=== PATIENT | female | born 1990 | race Caucasian/White ===

== ENCOUNTER 2021-04-16 06:00 | Inpatient (IN) | payer SELFPAY ==
[2021-04-16] MEDS ORDERED: LIDOCAINE 0.5% (PF) 5 MG/ML (50 ML SDV) SQ PRN (06:19)
[2021-04-16] MEDS ORDERED: METHYLERGONOVINE 0.2 MG/ML 1 ML AMP IM PRN (06:19)
[2021-04-16] MEDS ORDERED: OXYTOCIN 10 UNIT/ML 1 ML VIAL IM PRN (06:19)
[2021-04-16] MEDS ORDERED: CARBOPROST TROMETHAMINE 250 MCG/ML 1 ML AMP IM PRN (06:19)
[2021-04-16] MEDS ORDERED: TERBUTALINE 1 MG/ML VIAL SQ PRN (06:19)
[2021-04-16 06:32] LABS: Basophils % (A) 0 %; Eosinophils # (A) 0.1 k/uL (0-0.7); Eosinophils % (A) 1 %; HCT 30.7 % (34.0-46.0); Hypochromasia Slight; Lymphocytes # (A) 1.5 k/uL (1.0-4.8); Lymphocytes % (A) 14 %; MCH 28.7 pg (25.0-35.0); MCHC 32.7 g/dL (31.0-37.0); MCV 87.5 fL (80.0-100.0); Mean Platelet Volume 8.7; Monocytes # (A) 0.6 k/uL (0-1.0); Monocytes % (A) 5 %; Neutrophils % (A) 77 %; Platelet Count 223 k/uL (150-450); Poikilocytosis Slight; RDW 15.3 % (11.5-15.5); WBC 10.5 k/uL (3.8-10.6)
[2021-04-16] MEDS: OXYTOCIN 30 UNITS/500 ML NS 30 UNIT in SALINE 1 500ML.BAG IV SCH ×2 (06:36→15:30)
[2021-04-16] MEDS: LACTATED RINGERS 1,000 ML IV SCH ×3 (06:36→10:40)
[2021-04-16] MEDS ORDERED: BUTORPHANOL 1 MG/ML 1 ML VIAL IV PRN (08:21)
--- NOTE | 2021-04-16 08:21 | P.HPOB ---
History of Present Illness H&P Date: 04/16/21 Chief Complaint: Here for elective induction of labor with favorable multiparous cervix This is a 30-year-old white female 3 para 2001 EDC 04/23/2021 at 39 weeks gestation who presents today for induction of labor. She is having mild irregular spontaneous contractions. She denies fluid leakage or vaginal bleeding. Fetus is been active throughout the . Past medical history significant for ADHD. Past surgical history oral surgery, uncomplicated. Current medications vitamins daily, baby aspirin daily. ALLERGIES none known. Family history significant for Down syndrome, cerebral palsy, ovarian cancer, unspecified clotting disorder. Obstetric history significant for normal spontaneous vaginal deliveries 2, unremarkable. Social history patient is a former tobacco smoker, she is currently single. She denies alcohol or drug use. Obstetric history is significant for blood type A+, rubella status immune. VDRL testing, urine culture, hepatitis B surface antigen, HIV testing, gonorrhea and chlamydia cultures, group B strep cultures all negative. On exam patient is 4 foot 11 inches, 160 pounds, blood pressure 119/67, vital signs are stable and she is afebrile. The general physical exam is within normal limits. heart rate is consistent with reactive NST. Extremities are negative for edema. Chest is clear. Cervix is 4 cm dilated, 70% effaced, - 2 station, vertex presentation, anterior, soft. Artificial amniorrhexis reveals clear fluid. Impression: 39 week intrauterine , here for elective induction of labor, all signs reassuring. Plan: Oxytocin per hospital protocol. Analgesic options reviewed with the patient. Close maternal and surveillance. Anticipate normal spontaneous vaginal delivery. Review of Systems Constitutional: Reports as per HPI Past Medical History Past Medical History: No Reported History History of Any Multi-Drug Resistant Organisms: None Reported Past Surgical History: No Surgical Hx Reported Past Anesthesia/Blood Transfusion Reactions: No Reported Reaction Past Psychological History: No Psychological Hx Reported Smoking Status: Never smoker Past Alcohol Use History: None Reported Past Drug Use History: None Reported - Past Family History Father Family Medical History: No Reported History Medications and Allergies Home Medications Medication Instructions Recorded Confirmed Type Pedi Multivit No.25/Folic Acid 1 tab PO DAILY 04/16/21 04/16/21 History [Flintstones Multivit Chew Tab] Allergies Allergy/AdvReac Type Severity Reaction Status Date / Time No Known Allergies Allergy Verified 05/07/15 20:14 Exam Vital Signs Temp Pulse Resp BP Pulse Ox 04/16/21 06:17 98.4 F 106 H 16 119/67 99 Intake and Output 04/15/21 04/16/21 04/16/21 22:59 06:59 14:59 Other: Weight 72.575 kg See dictation under HPI please Results Result Diagrams: 04/16/21 06:15 Abnormal Lab Results - Last 24 Hours (Table) 04/16/21 Range/Units 06:15 RBC 3.50 L (3.80-5.40) m/uL Hgb 10.0 L (11.4-16.0) gm/dL Hct 30.7 L (34.0-46.0) % Neutrophils # 8.0 H (1.3-7.7) k/uL Assessment and Plan Assessment: 39 week intrauterine , here for induction of labor, all signs reassuring Plan: Oxytocin per hospital protocol. Close maternal and surveillance. Analgesic options reviewed with the patient. Anticipate normal spontaneous vaginal delivery. Time with Patient: Less than 30
[2021-04-16] MEDS ORDERED: ROPIVACAINE 5MG/ML 20ML VIAL ONE (09:53)
[2021-04-16] MEDS ORDERED: fentaNYL (PF) 50 MCG/ML 5 ML AMP ONE (09:53)
[2021-04-16] MEDS ORDERED: SODIUM CHLORIDE 0.9% 100 ML BAG ONE (09:53)
[2021-04-16] MEDS ORDERED: ONDANSETRON 4 MG/2 ML VIAL IVP STA (14:51)
[2021-04-16] MEDS ORDERED: SIMETHICONE 80 MG CHEWABLE PO PRN (15:28)
[2021-04-16] MEDS ORDERED: BENZOCAINE/MENTHOL SPRAY 1 GM/SPRAY AEROSOL TOPICAL PRN (15:28)
[2021-04-16] MEDS ORDERED: HYDROCORTISONE 2.5% RECTAL CREAM 30 GM TUBE RECTAL PRN (15:28)
[2021-04-16] MEDS ORDERED: ZOLPIDEM 5 MG TAB PO PRN (15:28)
[2021-04-16] MEDS ORDERED: diphenhydrAMINE 50 MG/ML 1 ML VIAL IVP PRN ×2 (15:28)
[2021-04-16] MEDS ORDERED: diphenhydrAMINE ELIXIR 25 MG/10 ML CUP PO PRN (15:28)
[2021-04-16] MEDS ORDERED: LANOLIN CREAM 5 GM TUBE TOPICAL PRN (15:28)
[2021-04-16] MEDS ORDERED: diphenhydrAMINE 25 MG CAP PO PRN (15:28)
[2021-04-16] MEDS ORDERED: ACETAMINOPHEN TAB 325 MG TAB PO PRN (15:28)
[2021-04-16] MEDS ORDERED: diphenhydrAMINE 50 MG CAP PO PRN (15:28)
--- NOTE | 2021-04-16 15:28 | P.PROBDLV ---
Vaginal Delivery Note - . Vaginal Delivery Note: This is a 30-year-old female 3 para 2001 EDC 04/23/2021 at 39 weeks gestation who presented for induction with favorable multiparous cervix. Patency is remarkable for blood type A positive, rupee strep cultures negative, rubella status immune. Anemia noted. Please see dictated history and physical for details. Artificial amniorrhexis revealed clear fluid. Oxytocin was started and titrated per hospital protocol. Epidural was placed per her request. Patient became completely dilated at 1408 hrs. Perineal body was prepped and draped in usual sterile fashion. With pushing patient was having decelerations that were late in nature, and therefore the decision was made to let the patient labor down". Upon cessation of pushing heart tones resumed a normal baseline of approximate 150. After approximately 20 minutes patient was rechecked and noted to be +1 station. She was encouraged to push at that time. 's head delivered occiput anterior and he restituted accordingly. There was no nuchal cord noted. The left or anterior shoulder was gently delivered from underneath the pubic symphysis at which time the oropharynx, nasopharynx, and external nares were all bulb suctioned on the perineal body. Patient was officially delivered of a liveborn male infant at 1510 hrs. Umbilical cord was doubly clamped and ligated, he was handed to waiting pediatricians for evaluation where scores of 7 and 9 at one and 5 minutes respectively were given. Upon delivering the placenta, there was a large after coming clot, suspicious for clinical abruption. Placenta was therefore sent to pathology for evaluation. Uterus is massaged. It is noted to be firm and in the midline. Careful inspection of the cervix, vagina, perineum, periurethral, and perirectal areas revealed no lacerations and no defects. Cord gases are sent to the lab for evaluation. weighs 8 lbs. 5 oz. or 3775 g. Patient is requesting circumcision for her son. Total estimated blood loss 400 mL's. Admitting hemoglobin 10.8. All sponge needle and enhancement counts are correct at the end of this procedure.
[2021-04-16] MEDS: IBUPROFEN 600 MG TAB PO SCH ×2 (15:42→21:48)
[2021-04-16] MEDS: SENNOSIDES-DOCUSATE SODIUM 1 EACH TAB PO SCH (19:52)
[2021-04-17] MEDS: IBUPROFEN 600 MG TAB PO SCH ×4 (04:44→23:00)
[2021-04-17 07:13] LABS: Basophils % (A) 0 %; Eosinophils # (A) 0.1 k/uL (0-0.7); Eosinophils % (A) 1 %; HCT 26.5 % (34.0-46.0); Hypochromasia Slight; Lymphocytes # (A) 1.3 k/uL (1.0-4.8); Lymphocytes % (A) 9 %; MCH 28.5 pg (25.0-35.0); MCHC 32.2 g/dL (31.0-37.0); MCV 88.4 fL (80.0-100.0); Mean Platelet Volume 8.9; Monocytes # (A) 0.7 k/uL (0-1.0); Monocytes % (A) 5 %; Neutrophils # (A) 11.4 k/uL (1.3-7.7); Neutrophils % (A) 83 %; Platelet Count 175 k/uL (150-450); Poikilocytosis Slight; RBC 2.99 m/uL (3.80-5.40); RDW 15.2 % (11.5-15.5); WBC 13.7 k/uL (3.8-10.6)
[2021-04-17 07:24] LABS: HGB 8.5 gm/dL (11.4-16.0)
--- NOTE | 2021-04-17 07:57 | P.DS ---
Providers Date of admission: 04/16/21 06:00 Expected date of discharge: 04/17/21 Attending physician: Domitila Adorno Primary care physician: Stated None Hospital Course: This is a 30-year-old white female 3 para 2001 EDC 04/23/2021 at 39 weeks gestation who presented for induction with favorable multiparous cervix. is remarkable for smoking, blood type A positive, rubella status immune, group B strep cultures negative. Please see dictated history and physical for details. Patient requested and received an epidural. Artificial amniorrhexis revealed clear fluid. She went on to deliver vaginally a male infant with scores of 7 and 9 at one and 5 minutes respectively. weighed 3775 g or 8 lbs. 5 oz. There was a suspicion clinically for placental abruption, placenta sent to pathology for evaluation. Total estimated blood loss 400 mL's. Perineal body intact. Please see my dictated delivery note for details. This morning the patient is doing well. She is voiding, ambulating, passing flatus without difficulty. Vital signs are stable and she is afebrile. Fundus is firm and in the midline, symmetric and 18 week size. Extremities are negative for edema. [place] is doing well. Circumcision has been performed. Patient is judged to be in very good condition for discharge home. She will follow-up with me in the office in 6 weeks. I have reminded her no intercourse, tampons or douching. She will use [id number] Advil or Aleve, or Motrin as needed for pain. She will call with any fevers shakes or chills, foul smelling or copious lochia, with the passage of large blood clots, pain not alleviated by [id number] products, or indeed with any concerns. We have discussed contraceptive options and we will review this further in the office. Assessment: Doing well day #1 Patient Condition at Discharge: Good Plan - Discharge Summary Discharge Rx Participant: No New Discharge Prescriptions: No Action Pedi Multivit No.25/Folic Acid [Flintstones Multivit Chew Tab] 1 tab PO DAILY Discharge Medication List Pedi Multivit No.25/Folic Acid [Flintstones Multivit Chew Tab] 1 tab PO DAILY 04/16/21 [History] Follow up Appointment(s)/Referral(s): Domitila Adorno MD [STAFF PHYSICIAN] - 6 Weeks Discharge Disposition: HOME SELF-CARE
[2021-04-17] MEDS: SENNOSIDES-DOCUSATE SODIUM 1 EACH TAB PO SCH ×2 (08:58→19:47)
[2021-04-18] MEDS: IBUPROFEN 600 MG TAB PO SCH (05:54)
[2021-04-18 09:04] VITALS: BP 109/73; PULSE 71; RESP 18; TEMP 98.2
[2021-04-18] MEDS: SENNOSIDES-DOCUSATE SODIUM 1 EACH TAB PO SCH (09:06)
== END 2021-04-18 15:30 | disposition home or self-care (01) | DRG 807 ==
LOC: 4FBP 06:00
PROVIDERS: ADMIT Obstetrics & Gynecology; ATTEND Obstetrics & Gynecology
PROC: 10E0XZZ Delivery of Products of Conception, External Approach (ICD-10-PCS; principal; 2021-04-16)
DX: O76 Abnormality in fetal heart rate and rhythm complicating labor and delivery (principal); Z37.0 Single live birth; O99.02 Anemia complicating childbirth; D64.9 Anemia, unspecified; Z3A.39 39 weeks gestation of pregnancy; Z87.891 Personal history of nicotine dependence; Z79.82 Long term (current) use of aspirin; Z82.79 Family history of other congenital malformations, deformations and chromosomal abnormalities; Z80.41 Family history of malignant neoplasm of ovary; Z83.2 Family history of diseases of the blood and blood-forming organs and certain disorders involving the immune mechanism
CPT/HCPCS: 85025; 86850; 86900; 86901; 88307